=== PATIENT | female | born 1960 | race Caucasian/White ===

== ENCOUNTER 2020-07-01 08:48 | Outpatient (REF) | payer OTHER, SELFPAY | END 2020-07-01 08:49 | disposition home or self-care (01) | LOC: HO.LAB 08:48 | PROVIDERS: Visit Provider Nurse Practitioner Family | DX: Z20.828 Contact with and (suspected) exposure to other viral communicable diseases (principal); J32.1 Chronic frontal sinusitis | CPT/HCPCS: U0003 ==

== ENCOUNTER 2021-05-11 14:12 | Outpatient (REF) | payer OTHER, SELFPAY ==
[2021-05-11 15:09] LABS: Influenza A PCR NEGATIVE (Negative); Influenza B PCR NEGATIVE (Negative); Resp Syncy Virus RNA Qual PCR NEGATIVE (Negative); SARS COV2 PCR INHOUSE NEGATIVE (Negative)
== END 2021-05-11 14:13 | disposition home or self-care (01) ==
LOC: HO.LNP 14:12
PROVIDERS: Visit Provider Physician Assistant Medical
DX: Z20.822 Contact with and (suspected) exposure to COVID-19 (principal); J06.9 Acute upper respiratory infection, unspecified
CPT/HCPCS: 0241U

== ENCOUNTER 2021-10-20 14:17 | Outpatient (REF) | payer OTHER, SELFPAY ==
--- NOTE | ~2021-10-20 | US_ITS ---
EXAMINATION: US EXTRACRANIAL CAROTID DUPLEX, BILATERAL CLINICAL INFORMATION: Peripheral vascular disease COMPARISON: None TECHNIQUE: Real-time ultrasound and Doppler techniques (integrating B-mode 2-D vascular images, Doppler spectral analysis and color-flow Doppler imaging) were utilized to interrogate the extracranial carotid arteries, the vertebral arteries and proximal subclavian arteries bilaterally. The degree of stenosis is determined by criteria similar to NASCET. FINDINGS: Right Side: 1. There is no significant atherosclerotic plaque seen in the bifurcation/proximal ICA region. 2. The common carotid artery PSV proximally is 67 cm/s and distally 66 cm/s. 3. The proximal internal carotid artery velocities are 56 cm/s systolic and 20 cm/s diastolic. 4. The proximal external carotid artery PSV is 53 cm/s. 5. The vertebral artery shows antegrade flow. 6. The subclavian artery waveforms are normal. Left Side: 1. There is no significant atherosclerotic plaque seen in the bifurcation/proximal ICA region. 2. The common carotid artery PSV proximally is 77 cm/s and distally 75 cm/s. 3. The proximal internal carotid artery velocities are 55 cm/s systolic and 15 cm/s diastolic. 4. The proximal external carotid artery PSV is 56 cm/s. 5. The vertebral artery shows antegrade flow. 6. The subclavian artery waveforms are normal. US/US carotid duplex BI IMPRESSION: 1. RIGHT: Normal right internal carotid artery without atherosclerotic plaque or hemodynamically significant stenosis. 2. LEFT: Normal left internal carotid artery without atherosclerotic plaque or hemodynamically significant stenosis.
== END 2021-10-20 14:18 | disposition home or self-care (01) ==
LOC: HO.HMGCX 14:17
PROVIDERS: Visit Provider Internal Medicine
DX: I73.9 Peripheral vascular disease, unspecified (principal); R09.89 Other specified symptoms and signs involving the circulatory and respiratory systems
CPT/HCPCS: 93880

== ENCOUNTER 2021-11-03 14:22 | Outpatient (REF) | payer OTHER, SELFPAY ==
--- NOTE | ~2021-11-03 | US_ITS ---
EXAMINATION: NONINVASIVE ASSESSMENT OF THE ARTERIES OF BOTH LOWER EXTREMITIES BILATERAL LOWER EXTREMITY DUPLEX. CLINICAL INFORMATION: Peripheral vascular disease COMPARISON: None TECHNIQUE: Duplex Doppler techniques with wave form analysis and measurement of velocities in the common femoral, profunda femoral, superficial femoral, popliteal, tibial and peroneal arteries. The study was performed only at rest. FINDINGS: RIGHT LEG DIRECT DUPLEX: Common femoral artery: 166 cm/s, Multiphasic Profunda femoris artery: 77 cm/s, Multiphasic Superficial femoral artery (proximal): 90 cm/s, Multiphasic Superficial femoral artery (mid): 113 cm/s, Multiphasic Superficial femoral artery (distal): 111 cm/s, Multiphasic Proximal Popliteal artery: 48 cm/s, Multiphasic Mid posterior tibial artery: 77 cm/s, Multiphasic LEFT LEG: DIRECT DUPLEX: Common femoral artery: 100 cm/s, Multiphasic Profunda femoris artery: 83 cm/s, Multiphasic Superficial femoral artery (proximal): 75 cm/s, Multiphasic Superficial femoral artery (mid): 114 cm/s, Multiphasic Superficial femoral artery (distal): 97 cm/s, Multiphasic Proximal Popliteal artery: 49 cm/s, Multiphasic Mid posterior tibial artery: 75 cm/s, Multiphasic US/US arterial duplex LE BI IMPRESSION: No hemodynamically significant stenoses in the bilateral lower extremities.
== END 2021-11-03 14:23 | disposition home or self-care (01) ==
LOC: HO.US 14:22
PROVIDERS: Visit Provider Internal Medicine
DX: I73.9 Peripheral vascular disease, unspecified (principal); R09.89 Other specified symptoms and signs involving the circulatory and respiratory systems
CPT/HCPCS: 93925

== ENCOUNTER 2022-02-04 10:28 | Outpatient (REF) | payer OTHER, SELFPAY ==
--- NOTE | ~2022-02-04 | XR_ITS ---
EXAMINATION: XR ELBOW, RIGHT CLINICAL INFORMATION: Right elbow injury. COMPARISON: None TECHNIQUE: AP, lateral, and oblique views of the right elbow. FINDINGS: The bones and soft tissues are normal. No fracture or joint effusion. Alignment is anatomic. Joint spaces are maintained. XR/XR elbow RT min 3V IMPRESSION: Unremarkable right elbow.
== END 2022-02-04 10:29 | disposition home or self-care (01) ==
LOC: HO.HMGCX 10:28
PROVIDERS: PCP Internal Medicine; Visit Provider Physician Assistant Medical
DX: S59.901D Unspecified injury of right elbow, subsequent encounter (principal)
CPT/HCPCS: 73080

== ENCOUNTER 2022-12-16 07:41 | Day surgery (SDC) | payer OTHER, SELFPAY ==
--- NOTE | 2022-12-15 10:52 | P.CONAN_ITS ---
Documented by User: Verena Watts NP 12/15/22 10:57 HPI - Anesthesia Eval Consult details Narrative: 62yo F for Colonoscopy PMFSH Active Problems Active Problems: All Active Problems (Updated 10/21/21 @ 13:05 by Amberly Galvez MD) Tobacco dependence in remission (Acute) Osteopenia (Acute ~2019) Personal history of nicotine dependence (Acute) Carotid artery bruit (Acute) Claudication (Acute) Migraine headache (Acute) IBS (irritable bowel syndrome) (Acute) GERD (gastroesophageal reflux disease) (Acute) Combined hyperlipidemia (Acute) Past Medical History Medical History Carotid artery bruit Claudication Combined hyperlipidemia Compression fx, lumbar spine (~2018) GERD (gastroesophageal reflux disease) History of mammogram IBS (irritable bowel syndrome) Migraine headache Osteopenia (~2019) Personal history of nicotine dependence Psoriasis Tobacco dependence in remission Tubular adenoma of colon (~2013) Family History Family History Father Angina pectoris CVD (cerebrovascular disease) Mother Parkinsons disease Surgical History Surgical History (Updated 10/12/21 @ 15:07 by Lela Isaac PA-C) History of colonoscopy Hx of breast implants, bilateral Social History Social History Housing: House Are you a primary home health care case manager to a significant other at home: No Do you presently have visiting nurse or other home services: No Patient Tobacco Use Status: Current everyday Tobacco user Tobacco use type: Cigarette Cigarette Packs Per Day: 0.5 Cigarettes Per Day: 10.0 Years Smoked: 30 e-Cigarette/Vaping Use: Never Used Use of substances other than those prescribed or required for medical reasons: No Are you DNR?: No Advance Directives: No Advance Directives Information Provided: Yes Recently lost weight without trying: No Nutrition Risks: No Nutritional Risk Current occupational status: retired Meds Allergies Allergy/AdvReac Type Severity Reaction Status Date / Time amoxicillin [Augmentin] Allergy Intermediate Gastrointestinal Verified 02/04/22 10:07 Upset clavulanic acid [Augmentin] Allergy Intermediate Gastrointestinal Verified 02/04/22 10:07 Upset penicillin V Allergy Intermediate Gastrointestinal Verified 02/04/22 10:07 Upset Exam Exam Date and Time: December 15, 2022 1052 Narrative Narrative: US carotid duplex BI 2021 IMPRESSION: 1. RIGHT: Normal right internal carotid artery without atherosclerotic plaque or hemodynamically significant stenosis. ? 2. LEFT: Normal left internal carotid artery without atherosclerotic plaque or hemodynamically significant stenosis. Assessment and Plan Assessment Anesthesia Assessment: Chart Reviewed Documented by User: Yumiko Collins MD 12/16/22 08:28 [facility] Past Medical History Medical History Carotid artery bruit Claudication Combined hyperlipidemia Compression fx, lumbar spine (~2018) GERD (gastroesophageal reflux disease) History of mammogram IBS (irritable bowel syndrome) Migraine headache Osteopenia (~2019) Personal history of nicotine dependence Psoriasis Tobacco dependence in remission Tubular adenoma of colon (~2013) Family History Family History Father Angina pectoris CVD (cerebrovascular disease) Mother Parkinsons disease Family history of problems with anesthesia: No Surgical History Surgical History (Updated 10/12/21 @ 15:07 by Lela Isaac PA-C) History of colonoscopy Hx of breast implants, bilateral History of Problems with Anesthesia: No Social History Social History Housing: House Are you a primary home health care case manager to a significant other at home: No Do you presently have visiting nurse or other home services: No Patient Tobacco Use Status: Current everyday Tobacco user Tobacco use type: Cigarette Cigarette Packs Per Day: 0.5 Cigarettes Per Day: 10.0 Years Smoked: 30 e-Cigarette/Vaping Use: Never Used Use of substances other than those prescribed or required for medical reasons: No Are you DNR?: No Advance Directives: No Advance Directives Information Provided: Yes Recently lost weight without trying: No Nutrition Risks: No Nutritional Risk Current occupational status: retired Meds Allergies Allergy/AdvReac Type Severity Reaction Status Date / Time amoxicillin [Augmentin] Allergy Intermediate Gastrointestinal Verified 02/04/22 10:07 Upset clavulanic acid [Augmentin] Allergy Intermediate Gastrointestinal Verified 02/04/22 10:07 Upset penicillin V Allergy Intermediate Gastrointestinal Verified 02/04/22 10:07 Upset Exam Airway Mallampati Class: II (caps multiple, lateral) TM Dist: >3cm Neck ROM: Full Heart: rrr Lungs: cta Assessment and Plan Assessment Anesthesia Assessment: Anesthesia Plan Discussed Final Anesthetic Review Family History of Problems with Anesthesia: No History of Problems with Anesthesia: No NPO: Yes ASA Class: II Final Preanesthetic Review: No Changes in Pt Med Stat, Meds/Allgs Chart Reviewed and Consent Obtained/Reviewed Patient Risk: Intermediate Procedure Risk: Intermediate Anesthetic Plan Anesthetic Plan: MAC: Disposition: Standard PACU
[2022-12-16 07:52] VITALS: BMI 20.1
[2022-12-16 08:14] VITALS: BP 121/72; PULSE 95; RESP 16; TEMP 36.7; O2SAT 98
[2022-12-16] MEDS: Lactated Ringers 1,000 ML 100 ML IVCONT (08:21)
--- NOTE | 2022-12-16 08:47 | MHC.SHP ---
Pre-Procedural Eval Section A Date of Service: 12/16/22 Section B Chief Complaint: Encounter for screening for malignant neoplasm of Details of Present Illness: see H*P no changes Relevant Family History (Specify if Yes): No Relevant Social History: None Present Medications: see Short Stay Collaborative assessment Medical History: No relevant PMH History of Previous Operations: No relevant previous surgery Allergies: Allergies Allergy/AdvReac Type Severity Reaction Status Date / Time amoxicillin [Augmentin] Allergy Intermediate Gastrointestinal Verified 02/04/22 10:07 Upset clavulanic acid [Augmentin] Allergy Intermediate Gastrointestinal Verified 02/04/22 10:07 Upset penicillin V Allergy Intermediate Gastrointestinal Verified 02/04/22 10:07 Upset Review of Systems Sugical H&P ROS: Negative: Constitution, Cardiovascular, Respiratory, Neurological, Psychiatric, Hem-Onc, Allergic/Immunologic, Gastrointestinal, Genitourinary, Musculoskeletal, Integumentary, Endocrine and Eyes/Ears/Nose/Throat Exam Surgical H&P Exam: Normal: HEENT, Normal: Heart, Normal: Lungs, Normal: Extremities, Normal: Abdomen, Normal: Skin and Normal: Neurological Plan Diagnosis/Plan: Unchanged I have reviewed the history and physical and performed a pertinent physical examination on my patient. No changes have occurred unless specified. Time Spent With Patient Time: Total time managing care of this patient today ____ minutes.
[2022-12-16 09:20] VITALS: BP 96/53; PULSE 89; RESP 16; TEMP 36.5; O2SAT 97
--- NOTE | 2022-12-16 09:24 | PM.OP ---
Brief Operative Note Date of Service: 12/16/22 Pre-op diagnosis: screening Post-op diagnosis: same Procedure: colonoscopy Surgeon: Derrick Cantu Anesthesia: MAC Was an Ingot Car Operator used for this Procedure?: No Estimated blood loss (mL): 2 Pathology: other Condition: stable Disposition: PACU
[2022-12-16 09:35] VITALS: BP 119/77; PULSE 85; RESP 16; TEMP 36.5; O2SAT 97
--- NOTE | 2022-12-16 11:06 | OP_ITS ---
DATE OF SERVICE: 12/16/2022 SURGEON: Derrick Cantu MD INDICATIONS: Colon cancer screening. PREOPERATIVE DIAGNOSIS: POSTOPERATIVE DIAGNOSIS: PROCEDURE PERFORMED: Colonoscopy to the terminal ileum with snare polypectomy. ESTIMATED BLOOD LOSS: COMPLICATIONS: ANESTHESIA: Monitored anesthesia care. ASSISTANTS: SPECIMENS: DESCRIPTION OF PROCEDURE: A history and physical was performed. The risks and benefits of the procedure were explained to the patient. Informed consent was obtained. The patient was placed in the left lateral decubitus position. A digital rectal exam was performed and was found to be normal. The Olympus pediatric video colonoscope was introduced into the rectum and advanced to the cecum without difficulty. The cecum was identified by transillumination, palpation, and identification of the ileocecal valve. Examination was performed. The scope was removed. She tolerated the procedure well and was returned to the recovery area in stable condition. FINDINGS: The terminal ileum was examined and appeared normal. The visualized colonic mucosa was within normal limits without evidence of masses or ulcers. The quality of the prep was good. In the cecum was a small 6 mm polyp, which was removed with a cold snare and recovered via suction. No other polyps were identified. There was mild sigmoid diverticulosis. Retroflexed examination was normal. IMPRESSION: Colon polyp. RECOMMENDATION: Follow up the biopsy results. MD BETHANY Looney/ANDRIY / [id number]
== END 2022-12-16 10:00 | disposition home or self-care (01) ==
PROVIDERS: PCP Internal Medicine; Visit Provider Internal Medicine Gastroenterology
PROC: 0DJD8ZZ Inspection of Lower Intestinal Tract, Via Natural or Artificial Opening Endoscopic (ICD-10-PCS; CPT 45378; principal; 2022-12-16 08:50)
DX: Z12.11 Encounter for screening for malignant neoplasm of colon (principal); D12.0 Benign neoplasm of cecum; K57.30 Diverticulosis of large intestine without perforation or abscess without bleeding; Z86.010 Personal history of colon polyps; K21.9 Gastro-esophageal reflux disease without esophagitis; K58.1 Irritable bowel syndrome with constipation; Z88.1 Allergy status to other antibiotic agents
CPT/HCPCS: 45385; 88305